=== PATIENT | male | born 1950 | race Caucasian/White ===

== ENCOUNTER → 2020-04-04 | Outpatient (CLI) | payer MEDICARE, OTHER ==
[~2020-04-04] MED LIST: ATOR40TA78 PO; VALS160T3 PO
[2020-04-04 12:39] LABS: BASOPHILS # (AUTO) 0.04 x10^3/uL (0-0.1); BASOPHILS % (AUTO) 0 % (0-1); EOSINOPHILS # (AUTO) 0.18 x10^3/uL (0-0.4); EOSINOPHILS % (AUTO) 2 % (1-7); LYMPHOCYTES # (AUTO) 1.33 x10^3/uL (1-3.4); LYMPHOCYTES % (AUTO) 13 % (22-44); MD NO; MEAN CORPUSCULAR HEMOGLOBIN 30.7 pg (27.5-34.5); MEAN CORPUSCULAR HGB CONC 32.5 g/dL (33.2-36.2); MEAN CORPUSCULAR VOLUME 94.2 fL (81-97); MEAN PLATELET VOLUME 8.7 fL (7.4-10.4); MONOCYTES # (AUTO) 0.87 x10^3/uL (0.2-0.8); MONOCYTES % (AUTO) 8 % (2-9); NEUTROPHILS % (AUTO) 77 % (42-75); PLATELET COUNT 229 x10^3/uL (130-400); RED CELL DISTRIBUTION WIDTH 14.8 % (9.4-14.8)
[2020-04-04 12:44] LABS: CHLORIDE 107 mmol/L (98-107); MICROSCOPIC NOT IND
[2020-04-04 12:54] LABS: ALANINE AMINOTRANSFERASE 45 U/L (12-78); ALBUMIN 4.2 g/dL (3.4-5.0); ALKALINE PHOSPHATASE 83 U/L (45-117); ANION GAP 7 mmol/L (5-15); BILIRUBIN,TOTAL 0.9 mg/dL (0.2-1.0); CALCIUM 9.5 mg/dL (8.5-10.1); CREATININE 1.35 mg/dL (0.7-1.3); TOTAL PROTEIN 7.5 g/dL (6.4-8.2)
[2020-04-04 13:05] LABS: INTERNATIONAL NORMALIZED RATIO 1.04 (0.93-1.1); PROTHROMBIN TIME 10.7 Seconds (9.6-11.5)
== END | disposition home or self-care (01) ==
LOC: STAR 11:23
PROVIDERS: ATTEND Neurological Surgery
DX: Z01.818 Encounter for other preprocedural examination (principal); M48.061 Spinal stenosis, lumbar region without neurogenic claudication; R94.31 Abnormal electrocardiogram [ECG] [EKG]
CPT/HCPCS: 36415; 71046; 80053; 81003; 85025; 85610; 85730; 93005

== ENCOUNTER → 2020-04-08 | Outpatient (CLI) | payer MEDICARE, OTHER ==
[~2020-04-08] MED LIST changes: +CEFAZOLIN 1,000 MG ONE; +DEXAMETHASONE 4 MG/ML, 1ML ONE; +EPHEDRINE 50 MG/ML, 1ML ONE; +FENTANYL PF 250 MCG/5ML ONE; +GLYCOPYRROLATE 0.2MG/1ML, 5ML ONE; +MIDAZOLAM 1 MG/ML, 2ML ONE; +ONDANSETRON 2MG/ML, 2ML ONE; +PROPOFOL 10 MG/ML, 20ML ONE; +SUCCINYLCHOLINE 20 MG/ML, 10ML ONE
== END | disposition home or self-care (01) ==
LOC: STAR 12:58
PROVIDERS: ATTEND Anesthesiology
DX: Z01.812 Encounter for preprocedural laboratory examination (principal); Z20.828 Contact with and (suspected) exposure to other viral communicable diseases
CPT/HCPCS: 36415; 87635

== ENCOUNTER → 2021-02-21 | Outpatient (CLI) | payer MEDICARE, OTHER ==
[~2021-02-21] MED LIST changes: +ASPI81TA45 PO; -CEFAZOLIN 1,000 MG ONE; -DEXAMETHASONE 4 MG/ML, 1ML ONE; -EPHEDRINE 50 MG/ML, 1ML ONE; -FENTANYL PF 250 MCG/5ML ONE; -GLYCOPYRROLATE 0.2MG/1ML, 5ML ONE; +METH-639 PO; +METH4TAB2 PO; -MIDAZOLAM 1 MG/ML, 2ML ONE; -ONDANSETRON 2MG/ML, 2ML ONE; +OXYC1TAB14 PO; +OXYC1TAB18 PO; -PROPOFOL 10 MG/ML, 20ML ONE; -SUCCINYLCHOLINE 20 MG/ML, 10ML ONE; +TIZA4TAB2 PO
== END | disposition home or self-care (01) ==
LOC: RAD 15:04
PROVIDERS: ATTEND Neurological Surgery
DX: M51.36 Other intervertebral disc degeneration, lumbar region (principal); M43.16 Spondylolisthesis, lumbar region
CPT/HCPCS: 72131

== ENCOUNTER 2021-02-24 08:31 | Inpatient (IN) | payer MEDICARE, OTHER ==
[2021-02-21 13:46] LABS: MICROSCOPIC NOT IND
[2021-02-21 13:48] LABS: BASOPHILS % (AUTO) 1 % (0-1); EOSINOPHILS % (AUTO) 4 % (1-7); LYMPHOCYTES % (AUTO) 17 % (22-44); MEAN CORPUSCULAR HGB CONC 33.3 g/dL (33.2-36.2); MEAN PLATELET VOLUME 8.7 fL (7.4-10.4); MONOCYTES % (AUTO) 10 % (2-9); NEUTROPHILS % (AUTO) 69 % (42-75); PLATELET COUNT 218 x10^3/uL (130-400); RED BLOOD COUNT 5.15 x10^6/uL (4.38-5.82); RED CELL DISTRIBUTION WIDTH 14.4 % (9.4-14.8)
[2021-02-21 13:55] LABS: INTERNATIONAL NORMALIZED RATIO 0.98 (0.93-1.1); PROTHROMBIN TIME 10.5 Seconds (9.6-11.5)
[2021-02-21 13:58] LABS: ALANINE AMINOTRANSFERASE 34 U/L (12-78); ALBUMIN 3.7 g/dL (3.4-5.0); ANION GAP 6 mmol/L (5-15); CALCIUM 8.4 mg/dL (8.5-10.1); CHLORIDE 109 mmol/L (98-107); CREATININE 1.32 mg/dL (0.7-1.3)
[2021-02-21 14:00] LABS: ALKALINE PHOSPHATASE 92 U/L (45-117); BILIRUBIN,TOTAL 0.6 mg/dL (0.2-1.0)
[~2021-02-24] VITALS: Ht 177.8 cm; Wt 96.7 kg
[~2021-02-24 08:31] MED LIST changes: +BUPIVACAINE/PF 0.25% ONE; +EPINEPHRINE 1 MG/ML, 1ML ONE; +GENTAMICIN 80 MG/2 ML ONE; +VANCOMYCIN 1,000 MG ONE
[2021-02-24] MEDS ORDERED: LACTATED RINGERS 1,000 ML IV SCH (09:00)
[2021-02-24] MEDS ORDERED: CHLORHEXIDINE 15 ML UDC PO ONE (09:00)
[2021-02-24] MEDS ORDERED: aleeve PO (09:02)
[2021-02-24] MEDS ORDERED: quetiapine PO (09:02)
[2021-02-24] MEDS ORDERED: PROPOFOL 10 MG/ML, 20ML ONE (09:42)
[2021-02-24] MEDS ORDERED: LIDOCAINE-MPF 2% ,5ML ONE (09:42)
[2021-02-24] MEDS ORDERED: CEFAZOLIN 1,000 MG ONE ×2 (09:42)
[2021-02-24] MEDS ORDERED: MIDAZOLAM 1 MG/ML, 2ML ONE (09:42)
[2021-02-24] MEDS ORDERED: FENTANYL PF 250 MCG/5ML ONE (09:42)
[2021-02-24] MEDS ORDERED: PROPOFOL 50 ML ONE ×5 (09:42→14:37)
[2021-02-24] MEDS ORDERED: SUCCINYLCHOLINE 20 MG/ML, 10ML ONE (09:42)
[2021-02-24] MEDS ORDERED: DEXAMETHASONE 4 MG/ML, 1ML ONE ×2 (09:43)
[2021-02-24] MEDS ORDERED: ONDANSETRON 2MG/ML, 2ML ONE (09:43)
[2021-02-24] MEDS ORDERED: BUPIVACAINE/PF 0.25% ONE (11:09)
[2021-02-24] MEDS ORDERED: HEPARIN 1,000 UNITS/ML, 30ML ONE (11:10)
[2021-02-24] MEDS ORDERED: DIAZEPAM 5 MG/ML, 2ML IVPush PRN (11:30)
[2021-02-24] MEDS ORDERED: hydrALAzine 20 MG/ML, 1ML IV PRN (11:30)
[2021-02-24] MEDS ORDERED: METHOCARBAMOL 1,000 MG in DEXTROSE 5% 100 ML IV PRN (11:30)
[2021-02-24] MEDS ORDERED: ONDANSETRON 2MG/ML, 2ML IVPush PRN (11:30)
[2021-02-24] MEDS ORDERED: MEPERIDINE/PF 25MG/0.5ML IVPush PRN (11:30)
[2021-02-24] MEDS ORDERED: LABETALOL 5MG/ML, 20ML IV PRN (11:30)
[2021-02-24] MEDS ORDERED: HYDROmorphone 1 MG/ML, 1ML INJ IVPush PRN (11:30)
[2021-02-24] MEDS ORDERED: OXYcodone 5 MG/5 ML ORAL.SOL UDC PO PRN (11:30)
[2021-02-24] MEDS ORDERED: ACETAMINOPHEN 325 MG TABLET PO PRN (11:30)
[2021-02-24] MEDS ORDERED: KETAMINE 10 MG/ML, 20ML ONE (11:32)
[2021-02-24] MEDS ORDERED: MAGNESIUM SULFATE 1 GM/2 ML ONE (11:32)
[2021-02-24] MEDS ORDERED: BUPIVACAINE/PF-EPI 0.25% 1:200K INFIL ONE (12:46)
[2021-02-24] MEDS ORDERED: FENTANYL PF 100 MCG/2ML ONE ×3 (13:55→15:47)
[2021-02-24] MEDS ORDERED: HEPARIN 1,000 UNITS/ML, 30ML IVPB ONE (14:25)
[2021-02-24] MEDS ORDERED: VANCOMYCIN 1,000 MG IM ONE (14:26)
[2021-02-24] MEDS ORDERED: OXYcodone 5 MG/5 ML ORAL.SOL UDC ONE (15:26)
[2021-02-24] MEDS ORDERED: ACETAMINOPHEN 650 MG/20.3 ML UDC ONE (15:27)
[2021-02-24] MEDS ORDERED: DIAZEPAM 5 MG/ML, 2ML ONE (15:27)
[2021-02-24] MEDS: FENTANYL PF 100 MCG/2ML IV PRN ×4 (15:27→16:06)
[2021-02-24] MEDS ORDERED: VANCOMYCIN 1,000 MG ONE (16:39)
[2021-02-24] MEDS ORDERED: HYDROcodone/APAP 10/325 MG TABLET PO PRN (18:00)
[2021-02-24] MEDS ORDERED: ONDANSETRON 2MG/ML, 2ML IV PRN (18:00)
[2021-02-24] MEDS ORDERED: OXYcodone IR 5MG TABLET PO PRN (18:00)
[2021-02-24] MEDS ORDERED: BISACODYL 10 MG SUPP PR PRN (18:00)
[2021-02-24] MEDS ORDERED: PROMETHAZINE 25 MG/ML, 1ML IM PRN (18:00)
[2021-02-24] MEDS ORDERED: HYDROmorphone PCA 30 MG/30 ML IV PRN (18:00)
[2021-02-24] MEDS ORDERED: DIPHENHYDRAMINE 50 MG/ML, 1ML IVPush PRN (18:30)
[2021-02-24] MEDS ORDERED: DIPHENHYDRAMINE 25 MG CAPSULE PO PRN (18:30)
[2021-02-24] MEDS: CEFAZOLIN PMX 1GM/50ML 50 ML IVPB SCH (18:39)
[2021-02-24 19:54] VITALS: BP 125/84
[2021-02-24] MEDS: [UNRECOGNIZED DRUG - REMARK] MC SCH (21:00)
[2021-02-24] MEDS: ATORVASTATIN 40 MG TABLET PO SCH (21:27)
[2021-02-24] MEDS: NS + 20MEQ KCL 1,000 ML IV SCH (21:42)
[2021-02-25 00:28] VITALS: BP 108/73
[2021-02-25] MEDS: CEFAZOLIN PMX 1GM/50ML 50 ML IVPB SCH (01:31)
[2021-02-25 04:34] VITALS: BP 103/64
[2021-02-25] MEDS: [UNRECOGNIZED DRUG - REMARK] MC SCH ×3 (05:00→20:54)
[2021-02-25 05:31] LABS: BASOPHILS % (AUTO) 0 % (0-1); EOSINOPHILS % (AUTO) 0 % (1-7); LYMPHOCYTES % (AUTO) 7 % (22-44); MEAN CORPUSCULAR HGB CONC 33.2 g/dL (33.2-36.2); MEAN PLATELET VOLUME 8.8 fL (7.4-10.4); MONOCYTES % (AUTO) 10 % (2-9); NEUTROPHILS % (AUTO) 83 % (42-75); PLATELET COUNT 193 x10^3/uL (130-400); RED BLOOD COUNT 4.46 x10^6/uL (4.38-5.82)
[2021-02-25 05:45] LABS: ANION GAP 4 mmol/L (5-15); CALCIUM 8.5 mg/dL (8.5-10.1); CHLORIDE 109 mmol/L (98-107)
[2021-02-25 05:48] LABS: CREATININE 0.96 mg/dL (0.7-1.3)
[2021-02-25] MEDS: NS + 20MEQ KCL 1,000 ML IV SCH ×2 (07:26→12:34)
[2021-02-25 08:08] VITALS: BP 112/73
[2021-02-25] MEDS: VALSARTAN 160 MG TABLET PO SCH (08:10)
[2021-02-25] MEDS: SENNA/DOCUSATE TABLET PO SCH (08:10)
[2021-02-25 13:30] VITALS: BP 98/64
[2021-02-25] MEDS: OXYcodone IR 5MG TABLET PO PRN ×4 (13:41→23:38)
[2021-02-25] MEDS: TIZANIDINE 4MG TABLET PO PRN (16:58)
[2021-02-25 20:15] VITALS: BP 96/64
[2021-02-25] MEDS: ATORVASTATIN 40 MG TABLET PO SCH (20:29)
[2021-02-26] MEDS: TIZANIDINE 4MG TABLET PO PRN ×2 (01:32→09:47)
[2021-02-26 01:33] VITALS: BP 121/78
[2021-02-26] MEDS: OXYcodone IR 5MG TABLET PO PRN ×6 (03:00→22:34)
[2021-02-26] MEDS: NS + 20MEQ KCL 1,000 ML IV SCH ×3 (03:30→23:30)
[2021-02-26] MEDS: [UNRECOGNIZED DRUG - REMARK] MC SCH ×3 (05:00→21:00)
[2021-02-26 05:33] LABS: ANION GAP 5 mmol/L (5-15); CALCIUM 8.4 mg/dL (8.5-10.1); CHLORIDE 108 mmol/L (98-107); CREATININE 0.98 mg/dL (0.7-1.3)
[2021-02-26 05:36] LABS: BASOPHILS % (AUTO) 1 % (0-1); EOSINOPHILS % (AUTO) 1 % (1-7); LYMPHOCYTES % (AUTO) 10 % (22-44); MONOCYTES % (AUTO) 13 % (2-9); NEUTROPHILS % (AUTO) 75 % (42-75); PLATELET COUNT 175 x10^3/uL (130-400); RED BLOOD COUNT 4.27 x10^6/uL (4.38-5.82); RED CELL DISTRIBUTION WIDTH 14.3 % (9.4-14.8)
[2021-02-26 07:51] VITALS: BP 108/68
[2021-02-26 07:52] VITALS: BP 109/68
[2021-02-26] MEDS: SENNA/DOCUSATE TABLET PO SCH (07:55)
[2021-02-26] MEDS: VALSARTAN 160 MG TABLET PO SCH (07:55)
[2021-02-26] MEDS: MAGNESIUM HYDROXIDE 8%, 30ML UDC PO PRN (12:35)
[2021-02-26 13:49] VITALS: BP 94/56
[2021-02-26 19:39] VITALS: BP 116/71
[2021-02-26] MEDS: ATORVASTATIN 40 MG TABLET PO SCH (20:33)
[2021-02-27 01:48] VITALS: BP 115/77
[2021-02-27] MEDS: OXYcodone IR 5MG TABLET PO PRN ×4 (01:58→21:15)
[2021-02-27] MEDS: TIZANIDINE 4MG TABLET PO PRN ×3 (03:37→21:15)
[2021-02-27] MEDS: [UNRECOGNIZED DRUG - REMARK] MC SCH ×3 (05:00→19:47)
[2021-02-27] MEDS ORDERED: BISACODYL 10 MG SUPP PR PRN (06:30)
[2021-02-27 07:18] VITALS: BP 110/73
[2021-02-27] MEDS: VALSARTAN 160 MG TABLET PO SCH (09:21)
[2021-02-27] MEDS: SENNA/DOCUSATE TABLET PO SCH (09:22)
[2021-02-27] MEDS: MAGNESIUM HYDROXIDE 8%, 30ML UDC PO PRN (09:23)
[2021-02-27] MEDS: NS + 20MEQ KCL 1,000 ML IV SCH ×2 (09:23→19:30)
[2021-02-27 14:25] VITALS: BP 108/70
[2021-02-27 19:11] VITALS: BP 99/62
[2021-02-27] MEDS: ATORVASTATIN 40 MG TABLET PO SCH (21:15)
[2021-02-28 01:55] VITALS: BP 115/71
[2021-02-28] MEDS: [UNRECOGNIZED DRUG - REMARK] MC SCH (05:00)
[2021-02-28] MEDS: OXYcodone IR 5MG TABLET PO PRN ×3 (05:09→12:34)
[2021-02-28] MEDS: NS + 20MEQ KCL 1,000 ML IV SCH (05:30)
[2021-02-28 07:01] VITALS: BP 126/79
[2021-02-28] MEDS: TIZANIDINE 4MG TABLET PO PRN (09:47)
[2021-02-28] MEDS: VALSARTAN 160 MG TABLET PO SCH (09:49)
[2021-02-28] MEDS: SENNA/DOCUSATE TABLET PO SCH (09:49)
[2021-02-28 12:35] VITALS: BP 100/68
[2021-02-28 12:58] VITALS: BP 76/55
[2021-02-28 13:01] VITALS: BP 88/54
== END 2021-02-28 12:30 | disposition home or self-care (01) | DRG 459 ==
LOC: OUT 08:31 → 4NE 17:06 → OUT 19:56 → 4NE 20:37
PROVIDERS: ADMIT Neurological Surgery; ATTEND Neurological Surgery
PROC: 01NB0ZZ Release Lumbar Nerve, Open Approach (ICD-10-PCS; 2021-02-24)
PROC: 8E0W0CZ Robotic Assisted Procedure of Trunk Region, Open Approach (ICD-10-PCS; 2021-02-24)
PROC: 4A11X4G Monitoring of Peripheral Nervous Electrical Activity, Intraoperative, External Approach (ICD-10-PCS; 2021-02-24)
PROC: 0SG00AJ Fusion of Lumbar Vertebral Joint with Interbody Fusion Device, Posterior Approach, Anterior Column, Open Approach (ICD-10-PCS; principal; 2021-02-24 11:30)
DX: M43.16 Spondylolisthesis, lumbar region (principal); N17.0 Acute kidney failure with tubular necrosis; Z87.891 Personal history of nicotine dependence
CPT/HCPCS: 36415; 71046; 72100; 80048; 80053; 81003; 85025; 85610; 85730; 95938; 95941; C1713; C1776; G0378; J0171; J0690; J1100; J1170; J1644; J2250; J2405; J2704; J3010; J3360; J3370; J3475; J3480; C1762; J0330; J1200; J1580; J2800; J7120